=== PATIENT | male | born 1990 ===

== ENCOUNTER 2021-05-02 05:38 | Emergency (ER) | payer SELFPAY ==
[~2021-05-02] VITALS: Ht 175.3 cm; Wt 127.3 kg
[2021-05-02 05:40] VITALS: BP 164/97
== END 2021-05-02 06:59 | disposition left against medical advice (07) ==
LOC: EMS 05:41
DX: R00.2 Palpitations (principal); F15.90 Other stimulant use, unspecified, uncomplicated; I10 Essential (primary) hypertension
CPT/HCPCS: 99281; Z7502